=== PATIENT | male | born 1945 | race Caucasian/White ===

== ENCOUNTER → 2025-02-03 10:42 | Outpatient (BNV) | payer OTHER, SELFPAY | PROVIDERS: Visit Provider Clinical Nurse Specialist Psychiatric/Mental Health | DX: F33.2 Major depressive disorder, recurrent severe without psychotic features (principal) | CPT/HCPCS: 99202; 99205 ==

== ENCOUNTER 2025-03-25 10:30 | Outpatient (RCR) | payer OTHER, SELFPAY ==
--- NOTE | 2025-02-05 10:47 | P.CONTMS_ITS ---
History of Present Illness General Data Date of Service: 02/03/2025 Reason for consult: Major depression recurrent History of Present Illness 80 year old male referred by his psychiatrist Dr Danyel Zaldivar at the [facility]. Pt is here for a TMS consult for Recurrent Major Depression, severe. Pt reports depression started about 2 months ago. He says several stresses triggered this depression: relationship issues(he did not specify) turning 80 and cancelling a visist with his son and feeling guilty. Pt reports severe depression symptoms over the past month; not wanting to get out of bed, staying in bed fro up to 24 hours twice, forcing himslef to get up and get dressed and go outside for a few minutes, loss of enjoyment, withdrawing from his ususal activities with [employer] club and other group activivites. He reports low energy, low motivation. He reports low appetite, He reports increased sleeping. He denies current SI ro HI. No plan or intent to harm himsleef. He reports no alcohol use since 2023 as he knows it is not good for his mental s dickey. PHQ9= 22 and GAD7= 17 Pt denies cochlear implants, implanted stents or clips, implanted electrodes. Pt denies implanted metal plates, pacemenaker or defibrillator. He denies implanted insulin pump. He denies bullet fragments, magneto sensitive ink tattos. Pt denies hx of seizures, migraines, emily tumors. Pt denies any surgery above the head or neck. Current medications: [id number] daily asa 81 mg daily carvediol 25mg BID empagifl ozin 10mg daily furosemide 40mg daily lantaprost patti one drop each eye MVI daily sacubitril/valsarta 51 mg daily sildenafil citrate 100mg daily simvasatatin 40mg daily albuterol inhaler QID Past Psychiatric History/Medication Trials: pat major depression; no hx of darlene no hx psychosis. 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 Family History: lives alone; one son lives in [place], friend and support Gabby involved in care Social History: Pt is a vet - saw combat; [facility] [place]; was active in[employer] before depression Substance History: increased alcohol use in past - no alcohol abuse since September 2024 Trauma History: yes Meds/Allergies Allergies Allergies Allergy/AdvReac Type Severity Reaction Status Date / Time No Known Allergies Allergy Verified 02/05/25 12:44 Mental Status Exam Mental Status Exam Patient Appearance: Appropriate Patient Orientation: Person, Place, Time and Situation Level of Consciousness: Awake and Appropriate Patient Behavior: Appropriate, Fatigued, Distractible and Poor Eye Contact Mood Description: Withdrawn, Constricted and Depressed Affect Description: Withdrawn, Constricted and Flat Patient Cognition Impaired: No Ability to Follow Directions: Good Speech Pattern: Monotone, Soft-Spoken and Long Pauses Hallucinations: None Delusions: Not Present Thought Process: Slowed Thinking Thought Content: positive for Goal Oriented and positive for Slowed Thinking Judgement: Fair Assessment & Plan Assessment & Plan (1) Major depressive disorder, recurrent severe without psychotic features: Status: Acute Code(s): F33.2 - Major depressive disorder, recurrent severe without psychotic features Plan Pt is an appropriate candidate for TMS. He has tried antidepressant and psychotherapy in the past. He is wanting to try TMS and goal is to not have to use pharmaceuticals and try natural strategies:exercise and social activities. He has no known contraindications for TMS including he denies any mental implants or surgeries above the neck. He saw his cardiologiist yesterday and signed a relaseof information to request that consult note. Total time managing care of this patient today 75 minutes. Patient educated on: diagnosis, TMS and therapeutic strategies Informed Consent: understands
--- NOTE | 2025-02-10 14:56 | P.PNPS_ITS ---
TMS Daily Progress Note Daily TMS Progress Note Date of Service: 02/10/25 Week #: 1 Treatment #(12-04): 1 PHQ-9 Pre-Treatment (-): 22 PHQ-9 Most Recent (12-01): 22 GEREMIAS-7 Pre-Treatment (0-21): 17 GEREMIAS-7 Most Recent (0-21): 17 Reviewed: TMS Mapping/Re-mapping completed Verification: I have reviewed the TMS Maintenance Mechanic Engine Note and agree with the contents. The patient remains a candidate to continue TMS treatment per protocol. Assessment and Plan (1) Major depressive disorder, recurrent severe without psychotic features: Status: Acute Plan continue with TMS tx plan Total time managing care of this patient today: 35 minutes.
--- NOTE | 2025-03-05 11:26 | P.PNPS_ITS ---
TMS Daily Progress Note Daily TMS Progress Note Date of Service: 02/19/25 Week #: 2 Treatment #(-30): 8 PHQ-9 Pre-Treatment (-): 22 PHQ-9 Most Recent (12-01): 22 GEREMIAS-7 Pre-Treatment (0-21): 17 GEREMIAS-7 Most Recent (0-21): 17 Reviewed: TMS Tech Note Reviewed Verification: I have reviewed the TMS After School Program Teacher Note and agree with the contents. The patient remains a candidate to continue TMS treatment per protocol. Assessment and Plan (1) Major depressive disorder, recurrent severe without psychotic features: Status: Acute Plan Patient calm tolerating treatment well continue current TMS treatment plan
--- NOTE | 2025-03-05 11:26 | P.PNPS_ITS ---
TMS Daily Progress Note Daily TMS Progress Note Date of Service: 02/12/25 Week #: 1 Treatment #(12-04): 3 PHQ-9 Pre-Treatment (-): 22 PHQ-9 Most Recent (12-01): 22 GEREMIAS-7 Pre-Treatment (0-21): 17 GEREMIAS-7 Most Recent (0-21): 17 Reviewed: TMS Tech Note Reviewed Verification: I have reviewed the TMS Semiconductor Equipment Technician Note and agree with the contents. The patient remains a candidate to continue TMS treatment per protocol. Assessment and Plan (1) Major depressive disorder, recurrent severe without psychotic features: Status: Acute Plan continue with TMS tx plan patient tolerating treatment no significant side effects noted MT% increase
--- NOTE | 2025-03-05 11:26 | P.PNPS_ITS ---
TMS Daily Progress Note Daily TMS Progress Note Date of Service: 02/11/25 Week #: 1 Treatment #(12-04): 2 PHQ-9 Pre-Treatment (-): 22 PHQ-9 Most Recent (12-01): 22 GEREMIAS-7 Pre-Treatment (0-21): 17 GEREMIAS-7 Most Recent (0-21): 17 Reviewed: TMS Tech Note Reviewed Verification: I have reviewed the TMS Environmental Sustainability Manager Note and agree with the contents. The patient remains a candidate to continue TMS treatment per protocol. Assessment and Plan (1) Major depressive disorder, recurrent severe without psychotic features: Status: Acute Plan continue with TMS tx plan Mild fatigue noted after 1st treatment no significant side effects
--- NOTE | 2025-03-05 11:26 | P.PNPS_ITS ---
TMS Daily Progress Note Daily TMS Progress Note Date of Service: 02/13/25 Week #: 1 Treatment #(12-04): 4 PHQ-9 Pre-Treatment (-): 22 PHQ-9 Most Recent (12-01): 22 GEREMIAS-7 Pre-Treatment (0-21): 17 GEREMIAS-7 Most Recent (0-21): 17 Reviewed: TMS Tech Note Reviewed Verification: I have reviewed the TMS Clinical Technologist Note and agree with the contents. The patient remains a candidate to continue TMS treatment per protocol. Assessment and Plan (1) Major depressive disorder, recurrent severe without psychotic features: Status: Acute Plan Patient with mild side effects small headache and fatigue otherwise tolerating treatment MT gradually increasing
--- NOTE | 2025-03-05 11:26 | HO.TMSDAILY2 ---
TMS Daily Progress Note Daily TMS Progress Note Date of Service: 02/16/25 Week #: 1 Treatment #(12-04): 5 PHQ-9 Pre-Treatment (-): 22 PHQ-9 Most Recent (12-01): 8 GEREMIAS-7 Pre-Treatment (0-21): 17 GEREMIAS-7 Most Recent (0-21): 17 Reviewed: TMS Tech Note Reviewed Verification: I have reviewed the TMS Injection Machine Operator Note and agree with the contents. The patient remains a candidate to continue TMS treatment per protocol. Assessment and Plan (1) Major depressive disorder, recurrent severe without psychotic features: Status: Acute Plan Patient showing some response to treatment no significant adverse effects noted
--- NOTE | 2025-03-05 11:26 | HO.TMSDAILY2 ---
TMS Daily Progress Note Daily TMS Progress Note Date of Service: 02/17/25 Week #: 2 Treatment #(-30): 6 PHQ-9 Pre-Treatment (-): 22 PHQ-9 Most Recent (12-01): 8 GEREMIAS-7 Pre-Treatment (0-21): 17 GEREMIAS-7 Most Recent (0-21): 17 Reviewed: TMS Tech Note Reviewed Verification: I have reviewed the TMS Maxillofacial Prosthetics Dentist Note and agree with the contents. The patient remains a candidate to continue TMS treatment per protocol. Assessment and Plan (1) Major depressive disorder, recurrent severe without psychotic features: Status: Acute Plan continue current TMS treatment plan tolerating tx
--- NOTE | 2025-03-05 11:26 | HO.TMSDAILY2 ---
TMS Daily Progress Note Daily TMS Progress Note Date of Service: 02/18/25 Week #: 2 Treatment #(-30): 7 PHQ-9 Pre-Treatment (-): 22 PHQ-9 Most Recent (12-01): 8 GEREMIAS-7 Pre-Treatment (0-21): 17 GEREMIAS-7 Most Recent (0-21): 17 Reviewed: TMS Tech Note Reviewed Verification: I have reviewed the TMS Assistant Director Of Public Works Note and agree with the contents. The patient remains a candidate to continue TMS treatment per protocol. Assessment and Plan (1) Major depressive disorder, recurrent severe without psychotic features: Status: Acute Plan continue current TMS treatment plan tolerating treatment well no adverse effects noted
--- NOTE | 2025-03-05 11:26 | HO.TMSDAILY2 ---
TMS Daily Progress Note Daily TMS Progress Note Date of Service: 02/20/25 Week #: 2 Treatment #(-): 9 PHQ-9 Pre-Treatment (-): 22 PHQ-9 Most Recent (12-01): 8 GEREMIAS-7 Pre-Treatment (0-21): 17 GEREMIAS-7 Most Recent (0-21): 17 Reviewed: TMS Tech Note Reviewed Verification: I have reviewed the TMS Doll Surgeon Note and agree with the contents. The patient remains a candidate to continue TMS treatment per protocol. Assessment and Plan (1) Major depressive disorder, recurrent severe without psychotic features: Status: Acute Plan continue current TMS treatment plan no complaints of side effects patient remains hopeful
--- NOTE | 2025-03-05 12:46 | HO.TMSDAILY2 ---
TMS Daily Progress Note Daily TMS Progress Note Date of Service: 03/03/25 Week #: 3 Treatment #(12-04): 14 PHQ-9 Pre-Treatment (1-): 22 PHQ-9 Most Recent (12-01): 12 GEREMIAS-7 Pre-Treatment (0-21): 17 GEREMIAS-7 Most Recent (0-21): 8 CGI-I Most Recent: 0 = Not Assessed Reviewed: TMS Tech Note Reviewed Verification: I have reviewed the TMS Cert Occupational Therapy Asst Note and agree with the contents. The patient remains a candidate to continue TMS treatment per protocol. Assessment and Plan (1) Major depressive disorder, recurrent severe without psychotic features: Status: Acute Plan continue current TMS treatment plan
--- NOTE | 2025-03-05 16:55 | HO.TMSDAILY2 ---
TMS Daily Progress Note Daily TMS Progress Note Date of Service: 02/24/25 Week #: 2 Treatment #(-): 10 PHQ-9 Pre-Treatment (-): 22 PHQ-9 Most Recent (12-01): 10 GEREMIAS-7 Pre-Treatment (0-21): 17 GEREMIAS-7 Most Recent (0-21): 8 CGI-I Most Recent: 0 = Not Assessed Reviewed: TMS Tech Note Reviewed Verification: I have reviewed the TMS Merchandise Distributor Note and agree with the contents. The patient remains a candidate to continue TMS treatment per protocol. Assessment and Plan (1) Major depressive disorder, recurrent severe without psychotic features: Status: Acute Plan continue current TMS treatment plan no change to this point
--- NOTE | 2025-03-05 16:55 | HO.TMSDAILY2 ---
TMS Daily Progress Note Daily TMS Progress Note Date of Service: 02/25/25 Week #: 3 Treatment #(-): 11 PHQ-9 Pre-Treatment (-): 22 PHQ-9 Most Recent (12-01): 8 GEREMIAS-7 Pre-Treatment (0-21): 17 GEREMIAS-7 Most Recent (0-21): 8 CGI-I Most Recent: 0 = Not Assessed Reviewed: TMS Tech Note Reviewed Verification: I have reviewed the TMS Mechanical Engineering Professor Note and agree with the contents. The patient remains a candidate to continue TMS treatment per protocol. Assessment and Plan (1) Major depressive disorder, recurrent severe without psychotic features: Status: Acute Plan continue current TMS treatment plan no change to this point
--- NOTE | 2025-03-05 16:55 | HO.TMSDAILY2 ---
TMS Daily Progress Note Daily TMS Progress Note Date of Service: 02/26/25 Week #: 3 Treatment #(-30): 12 PHQ-9 Pre-Treatment (1-): 22 PHQ-9 Most Recent (12-01): 10 GEREMIAS-7 Pre-Treatment (0-21): 17 GEREMIAS-7 Most Recent (0-21): 8 CGI-I Most Recent: 0 = Not Assessed Reviewed: TMS Tech Note Reviewed Verification: I have reviewed the TMS Rigging Engineer Note and agree with the contents. The patient remains a candidate to continue TMS treatment per protocol. Assessment and Plan (1) Major depressive disorder, recurrent severe without psychotic features: Status: Acute Plan continue current TMS treatment plan no change to this point
--- NOTE | 2025-03-05 16:55 | HO.TMSDAILY2 ---
TMS Daily Progress Note Daily TMS Progress Note Date of Service: 02/27/25 Week #: 3 Treatment #(-): 13 PHQ-9 Pre-Treatment (1-): 22 PHQ-9 Most Recent (12-01): 10 GEREMIAS-7 Pre-Treatment (0-21): 17 GEREMIAS-7 Most Recent (0-21): 8 CGI-I Most Recent: 0 = Not Assessed Reviewed: TMS Tech Note Reviewed Verification: I have reviewed the TMS Brewmaster Note and agree with the contents. The patient remains a candidate to continue TMS treatment per protocol. Assessment and Plan (1) Major depressive disorder, recurrent severe without psychotic features: Status: Acute Plan continue current TMS treatment plan no change to this point
--- NOTE | 2025-03-05 16:55 | HO.TMSDAILY2 ---
TMS Daily Progress Note Daily TMS Progress Note Date of Service: 03/03/25 Week #: 3 Treatment #(12-04): 14 PHQ-9 Pre-Treatment (-): 22 PHQ-9 Most Recent (12-01): 12 GEREMIAS-7 Pre-Treatment (0-21): 17 GEREMIAS-7 Most Recent (0-21): 8 CGI-I Most Recent: 0 = Not Assessed Reviewed: TMS Tech Note Reviewed Verification: I have reviewed the TMS Packager Hand Note and agree with the contents. The patient remains a candidate to continue TMS treatment per protocol. Assessment and Plan (1) Major depressive disorder, recurrent severe without psychotic features: Status: Acute Plan some improvement remains flat
--- NOTE | 2025-03-16 11:58 | HO.TMSDAILY2 ---
TMS Daily Progress Note Daily TMS Progress Note Date of Service: 03/04/25 Week #: 3 Treatment #(12-04): 15 PHQ-9 Pre-Treatment (-): 22 PHQ-9 Most Recent (12-01): 12 GEREMIAS-7 Pre-Treatment (0-21): 17 GEREMIAS-7 Most Recent (0-21): 8 CGI-I Most Recent: 0 = Not Assessed Reviewed: TMS Tech Note Reviewed Verification: I have reviewed the TMS Fast Food Assistant Restaurant Manager Note and agree with the contents. The patient remains a candidate to continue TMS treatment per protocol. Assessment and Plan (1) Major depressive disorder, recurrent severe without psychotic features: Status: Acute Plan some improvement remains flat consider remap
--- NOTE | 2025-03-16 11:58 | HO.TMSDAILY2 ---
TMS Daily Progress Note Daily TMS Progress Note Date of Service: 03/05/25 Week #: 4 Treatment #(12-04): 16 PHQ-9 Pre-Treatment (-): 22 PHQ-9 Most Recent (12-01): 12 GEREMIAS-7 Pre-Treatment (0-21): 17 GEREMIAS-7 Most Recent (0-21): 8 CGI-I Most Recent: 0 = Not Assessed Reviewed: TMS Tech Note Reviewed Verification: I have reviewed the TMS Customer Field Representative Note and agree with the contents. The patient remains a candidate to continue TMS treatment per protocol. Assessment and Plan (1) Major depressive disorder, recurrent severe without psychotic features: Status: Acute Plan some improvement remains flat consider remap
--- NOTE | 2025-03-16 11:58 | HO.TMSDAILY2 ---
TMS Daily Progress Note Daily TMS Progress Note Date of Service: 03/06/25 Week #: 4 Treatment #(-): 17 PHQ-9 Pre-Treatment (1-): 22 PHQ-9 Most Recent (12-01): 12 GEREMIAS-7 Pre-Treatment (0-21): 17 GEREMIAS-7 Most Recent (0-21): 8 CGI-I Most Recent: 0 = Not Assessed Reviewed: TMS Tech Note Reviewed Verification: I have reviewed the TMS Mailing Clerk Note and agree with the contents. The patient remains a candidate to continue TMS treatment per protocol. Assessment and Plan (1) Major depressive disorder, recurrent severe without psychotic features: Status: Acute Plan continue current TMS tx plan
--- NOTE | 2025-03-16 12:58 | P.PNPS_ITS ---
TMS Daily Progress Note Daily TMS Progress Note Date of Service: 03/16/25 Week #: 4 Treatment #(12-04): 19 PHQ-9 Pre-Treatment (-): 22 PHQ-9 Most Recent (12-01): 11 GEREMIAS-7 Pre-Treatment (0-21): 17 GEREMIAS-7 Most Recent (0-21): 8 CGI-I Most Recent: 0 = Not Assessed Q-LES-Q-SF Most Recent: 43-41 Reviewed: TMS Tech Note Reviewed Verification: I have reviewed the TMS Continuing Education Specialist Note and agree with the contents. The patient remains a candidate to continue TMS treatment per protocol. Assessment and Plan (1) Major depressive disorder, recurrent severe without psychotic features: Status: Acute Plan continue current TMS tx plan
--- NOTE | 2025-03-17 12:44 | P.PNPS_ITS ---
TMS Daily Progress Note Daily TMS Progress Note Date of Service: 03/17/25 Week #: 4 Treatment #(-): 20 PHQ-9 Pre-Treatment (-): 22 PHQ-9 Most Recent (12-01): 11 GEREMIAS-7 Pre-Treatment (0-21): 17 GEREMIAS-7 Most Recent (0-21): 8 CGI-I Most Recent: 0 = Not Assessed Q-LES-Q-SF Most Recent: 43-41 Reviewed: TMS Tech Note Reviewed Verification: I have reviewed the TMS Chief Airline Radio Operator Note and agree with the contents. The patient remains a candidate to continue TMS treatment per protocol. Assessment and Plan (1) Major depressive disorder, recurrent severe without psychotic features: Status: Acute Plan continue current TMS tx plan
--- NOTE | 2025-03-30 15:55 | HO.TMSDAILY2 ---
TMS Daily Progress Note Daily TMS Progress Note Date of Service: 03/11/25 Week #: 4 Treatment #(12-04): 18 PHQ-9 Pre-Treatment (-): 22 PHQ-9 Most Recent (12-01): 11 GEREMIAS-7 Pre-Treatment (0-21): 17 GEREMIAS-7 Most Recent (0-21): 8 CGI-I Most Recent: 0 = Not Assessed Q-LES-Q-SF Most Recent: 43-41 Reviewed: TMS Tech Note Reviewed Verification: I have reviewed the TMS Transit Bus Operator Note and agree with the contents. The patient remains a candidate to continue TMS treatment per protocol. Assessment and Plan (1) Major depressive disorder, recurrent severe without psychotic features: Status: Acute Plan continue current TMS tx plan patient with some congestion may go to urgent care
--- NOTE | 2025-03-30 15:55 | HO.TMSDAILY2 ---
TMS Daily Progress Note Daily TMS Progress Note Date of Service: 03/16/25 Week #: 4 Treatment #(12-04): 19 PHQ-9 Pre-Treatment (1-): 22 PHQ-9 Most Recent (12-01): 11 GEREMIAS-7 Pre-Treatment (0-21): 17 GEREMIAS-7 Most Recent (0-21): 8 CGI-I Most Recent: 0 = Not Assessed Q-LES-Q-SF Most Recent: 43-41 Reviewed: TMS Tech Note Reviewed Verification: I have reviewed the TMS Assistant Field Hockey Coach Note and agree with the contents. The patient remains a candidate to continue TMS treatment per protocol. Assessment and Plan (1) Major depressive disorder, recurrent severe without psychotic features: Status: Acute Plan continue current TMS tx plan patient tolerating treatment
--- NOTE | 2025-03-30 15:55 | HO.TMSDAILY2 ---
TMS Daily Progress Note Daily TMS Progress Note Date of Service: 03/17/25 Week #: 4 Treatment #(-): 20 PHQ-9 Pre-Treatment (1-): 22 PHQ-9 Most Recent (12-01): 11 GEREMIAS-7 Pre-Treatment (0-21): 17 GEREMIAS-7 Most Recent (0-21): 8 CGI-I Most Recent: 0 = Not Assessed Q-LES-Q-SF Most Recent: 43-41 Reviewed: TMS Tech Note Reviewed Verification: I have reviewed the TMS Internet Sales Associate Note and agree with the contents. The patient remains a candidate to continue TMS treatment per protocol. Assessment and Plan (1) Major depressive disorder, recurrent severe without psychotic features: Status: Acute Plan continue current TMS tx plan patient tolerating treatment
--- NOTE | 2025-03-30 15:55 | HO.TMSDAILY2 ---
TMS Daily Progress Note Daily TMS Progress Note Date of Service: 03/24/25 Week #: 5 Treatment #(12-04): 21 PHQ-9 Pre-Treatment (-): 22 PHQ-9 Most Recent (12-01): 11 GEREMIAS-7 Pre-Treatment (0-21): 17 GEREMIAS-7 Most Recent (0-21): 8 CGI-I Most Recent: 0 = Not Assessed Q-LES-Q-SF Most Recent: 43-41 Reviewed: TMS Tech Note Reviewed Verification: I have reviewed the TMS Valet Parking Attendant Note and agree with the contents. The patient remains a candidate to continue TMS treatment per protocol. Assessment and Plan (1) Major depressive disorder, recurrent severe without psychotic features: Status: Acute Plan Patient continues to tolerate treatment. Patient unfortunately continues to have some degree of shortness breath not related to treatment hoping to get worked up. He does have an inhaler
--- NOTE | 2025-03-30 15:55 | HO.TMSDAILY2 ---
TMS Daily Progress Note Daily TMS Progress Note Date of Service: 03/25/25 Week #: 5 Treatment #(12-04): 22 PHQ-9 Pre-Treatment (-): 22 PHQ-9 Most Recent (12-01): 11 GEREMIAS-7 Pre-Treatment (0-21): 17 GEREMIAS-7 Most Recent (0-21): 8 CGI-I Most Recent: 0 = Not Assessed Q-LES-Q-SF Most Recent: 43-41 Reviewed: TMS Tech Note Reviewed Verification: I have reviewed the TMS Projection Welding Machine Operator Note and agree with the contents. The patient remains a candidate to continue TMS treatment per protocol. Assessment and Plan (1) Major depressive disorder, recurrent severe without psychotic features: Status: Acute Plan Patient tolerating TMS some improvement noted. He is getting a medical workup for shortness of breath.
== END 2025-03-27 15:00 | disposition home or self-care (01) ==
LOC: HO.PTMS 10:30
PROVIDERS: Referring Provider Psychiatry & Neurology Psychiatry; Visit Provider Clinical Nurse Specialist Psychiatric/Mental Health
DX: F33.2 Major depressive disorder, recurrent severe without psychotic features (principal)
CPT/HCPCS: 90867; 90868